=== PATIENT | male | born 1965 | race Caucasian/White ===

== ENCOUNTER → 2023-09-05 06:23 | Day surgery (SDC) | payer BC, SELFPAY | LOC: GI 06:23 | PROVIDERS: ATTENDING PHYSICIAN Internal Medicine Gastroenterology | DX: Z12.11 Encounter for screening for malignant neoplasm of colon (principal); Z86.010 Personal history of colon polyps; K64.8 Other hemorrhoids; K57.30 Diverticulosis of large intestine without perforation or abscess without bleeding; D12.5 Benign neoplasm of sigmoid colon; K63.5 Polyp of colon | CPT/HCPCS: 45385; 45380; 88305 ==

== ENCOUNTER → 2023-11-26 06:17 | Outpatient (REF) | payer BC, SELFPAY ==
[2023-11-26 07:16] LABS: % Basophils 1.2 % (0-2); % Eosinophils 3.3 % (0-6); % Immature Granulocytes 0.3 % (0-0.5); % Lymphocytes 26.6 % (20.5-51.1); % Monocytes 11.5 % (1.7-9.3); % Neutrophils 57.1 % (42.2-75.2); Absolute Basophils 0.1 10^3/uL (0-0.2); Absolute Eosinophils 0.2 10^3/uL (0-0.7); Absolute Lymphocytes 1.9 10^3/uL (1.2-3.4); Absolute Monocytes 0.8 10^3/uL (0.1-0.6); Absolute Neutrophils 4.1 10^3/uL (1.4-6.5); Hematocrit 46.7 % (39.0-52.0); Hemoglobin 15.7 g/dL (13.0-18.0); Mean Corp Hgb Conc. 33.6 g/dL (33.0-37.0); Mean Corpuscular Hgb 29.8 pg (27.0-31.0); Mean Corpuscular Volume 88.8 fL (80.0-94.0); Mean Platelet Volume 9.9 fL (7.4-10.4); Nucleated Red Blood Cells % 0 % (-); Platelet Count 278 10^3/uL (130-400); Red Blood Cell Count 5.26 10^6/uL (4.70-6.10); Red Cell Dist. Width 12.6 % (11.5-14.5); White Blood Cell Count 7.2 10^3/uL (4.8-10.8)
[2023-11-26 07:25] LABS: Urine Albumin Negative (Neg - Trace); Urine Bilirubin Negative (Negative); Urine Character Clear (Clear); Urine Color Yellow; Urine Glucose Negative (Negative); Urine Ketone Negative (Negative); Urine Leukocyte Negative (Negative); Urine Nitrite Negative (Negative); Urine Occult Blood Negative (Negative); Urine Urobilinogen 1+ (Neg - 1+)
[2023-11-26 07:33] LABS: ALT (SGPT) 23 U/L (0-50); AST (SGOT) 23 U/L (17-59); Albumin 4.3 g/dl (3.5-5.0); Alkaline Phosphatase 63 U/L (38-126); Blood Urea Nitrogen 13 mg/dl (9-20); Calcium 9.6 mg/dl (8.4-10.2); Carbon Dioxide 25 mmol/L (22-30); Chloride 105 mmol/L (98-107); Glucose 93 mg/dl (70-99); HDL Cholesterol 77 mg/dl; LDL Cholesterol, Calculated 114 mg/dl; Potassium 4.3 mmol/L (3.5-5.1); Sodium 136 mmol/L (135-145); Total Bilirubin 1.2 mg/dl (0.2-1.3); Total Cholesterol 204 mg/dl (50-199); Total Protein 7.3 g/dl (6.3-8.2); Triglyceride 69 mg/dl (10-149); Very Low Density Lipoprotein 13 mg/dl (0-30); eGFR > 60.00
[2023-11-26 08:03] LABS: PSA, Total - Screen 3.02 ng/ml (0.0-4.0); TSH Reflex To Free T4 3.37 uIU/ml (0.47-4.68)
[2023-11-26 08:50] LABS: Lithium 0.8 mmol/L (0.6-1.2)
== END ==
LOC: REG 06:17
PROVIDERS: ATTENDING PHYSICIAN Family Medicine
DX: Z00.01 Encounter for general adult medical examination with abnormal findings (principal); Q85.00 Neurofibromatosis, unspecified; F31.9 Bipolar disorder, unspecified
CPT/HCPCS: 36415; 80053; 80061; 80178; 81003; 84443; 85025; G0103

== ENCOUNTER → 2023-12-27 09:50 | Outpatient (REF) | payer BC, SELFPAY ==
[2023-12-27 12:44] LABS: PSA, Total - Screen 3.17 ng/ml (0.0-4.0)
== END ==
LOC: REG 09:50
PROVIDERS: ATTENDING PHYSICIAN Family Medicine
DX: R97.20 Elevated prostate specific antigen [PSA] (principal)
CPT/HCPCS: 36415; G0103

== ENCOUNTER → 2024-06-24 11:20 | Outpatient (REF) | payer BC, SELFPAY ==
[2024-06-24 13:09] LABS: PSA, Total - Screen 3.06 ng/ml (0.0-4.0)
== END ==
LOC: REG 11:20
PROVIDERS: ATTENDING PHYSICIAN Family Medicine
DX: R97.20 Elevated prostate specific antigen [PSA] (principal)
CPT/HCPCS: 36415; G0103

== ENCOUNTER 2025-01-14 10:23 | Emergency (ER) | payer BC, SELFPAY ==
[2025-01-14] VITALS (12 sets, daily range): BP systolic 109–133; BP diastolic 72–103; PULSE 77–87; BMI 28.0
--- NOTE | 2025-01-14 11:25 | ED.GENMED ---
History of Present Illness
General
Chief Complaint: Dizziness
Source: patient
Exam Limitations: none
Time Seen by Provider: 01/14/25 10:54
History of Present Illness
History of Present Illness:
59-year-old male with history of neurofibromatosis type I presents with newer onset of left-sided neck pain and stiffness with new numbness and tingling to both hands particular the small and ring fingers. This has been present and getting worse
over the past 2 to 3 days. He notes associated dizziness and unsteadiness with gait. He feels like he is leaning towards 1 side when he walks. He denies double vision or blurry vision. No loss of vision. No headache. No recent trauma.
Remotely he required an excision of a neurofibromatosis lesion from his cervical spine. He had MRIs of his brain and cervical spine as recently as 2021. He denies any new weakness to the arms. No associated chest pain. No fevers. No other bowel
or bladder dysfunction
Phy Exam
Physical Exam
Physical Exam:
General: Well-appearing male no acute respiratory distress
HEENT: Normocephalic atraumatic no nystagmus
Heart: Regular rate and rhythm lungs: Clear no wheeze
Neurologic exam: Alert and oriented no facial asymmetry [place]-Hallpike negative no nystagmus finger-nose intact no drift good strength to the upper and lower extremities however there is some subjective decrease sensation to the small and ring fingers
bilaterally
Skin is warm no rash
Extremities: No cyanosis or edema
Course
Orders/Labs/Results
Orders:
Orders
01/14/25 10:30
Electrocardiogram (*1) Urgent
Reason for Study: Chest Pain
EKG- Treatment ONCE
01/14/25 11:16
Complete Blood Count/With Diff Urgent
01/14/25 11:29
CT Head & Neck Angio W/wo IV Urgent
Comment:
Reason For Exam: dizziness, paresthesias, neck pain h/o neurofibrom
01/14/25 11:48
Orthostatic VS- Treatment ONCE
01/14/25 11:51
Comprehensive Metabolic Panel Urgent
[place] Urgent
Comment: ADD ON
01/14/25 12:45
MR Cervical Spine Without & W Routine
Comment:
Reason For Exam: severe pain
Recent pill cam endoscopy?: No
Lorazepam [Ativan] 1 mg PO ONCE ONE
01/14/25 13:08
Add On- LAB Routine
Tests Added?: lithium level
Abnormal Lab Results
01/14/25 01/14/25
11:16 11:51
Lymphocytes % 17.5 L %
(20.5-51.1)
Chloride 111 H mmol/L
(98-107)
[place] < 0.2 L mmol/L
(0.6-1.2)
01/14/25 11:16
01/14/25 11:51
Vital Signs
Initial and Last Documented VS:
Initial Vital Signs
Temp Pulse Resp BP Pulse Ox
97.7 F 96 20 133/85 98
01/14/25 10:27 01/14/25 10:27 01/14/25 10:27 01/14/25 10:27 01/14/25 10:27
Last Documented Vital Signs
Temp Pulse Resp BP Pulse Ox
97.7 F 83 24 120/72 97
01/14/25 10:27 01/14/25 18:00 01/14/25 18:00 01/14/25 18:00 01/14/25 18:00
MDM/Problems Addressed
Differential Diagnosis Includes:
Dizziness with paresthesias to both hands and gait instability. History of neurofibromatosis type I. He has new neck pain as well. Differential could include stroke versus worsening underlying condition versus radiculopathy
Discussed with emergency room attending as well as neurology. Neurology in the room to see the patient. Will start with CT of head and CT angio of head and neck
*Pulse Oximetry
SaO2: 99
Oxygen Mode of Delivery: Room air
Patient hypoxic: no
*Critical Care Note
Total Time (30-74mins, 75-104mins- exclusive of procedures): Not Applicable
Update Note
Update Note:
Patient examined by neurology. Neurology did order MRI of cervical spine after CT angio of head and neck were performed. MRI cervical spine shows stable findings of neurofibromatosis in the cervical spine without significant encroachment of the
spinal cord. There is degenerative changes noted in the cervical spine as well. Patient notes persistent paresthesias to the ring and small fingers of both hands. He expresses concern about the progressive nature of this. I discussed these
findings with neurosurgery who recommended a course of steroids and follow-up but no acute intervention needed otherwise. At this point based on neurology and neurosurgery recommendations can be discharged with follow-up.
ED Attending Note
-
Portions of this chart may have been created with voice recognition software.� Occasional wrong word or��sound alike� substitutions may have occurred due to the inherent limitations of voice recognition software.
Discharge Plan
Departure
Patient Disposition: Home (Routine Discharge)
Date of Disposition: 01/14/25
Time of Disposition: 18:11
Patient with high blood pressure during this ER visit?: No
Discharge Problem:
Paresthesia
Instructions: Vertigo (a type of dizziness)
Prescriptions:
New
pregabalin [Lyrica] 100 mg capsule
100 mg PO TID Qty: 30 0RF
prednisone 10 mg Tablet
See Rx Instructions .ROUTE .COMPLEX Qty: 30 0RF
Rx Instructions:
Take By Mouth:
40 mg daily x3 days, 30 mg daily x3 days,
20 mg daily x3 days, 10 mg daily x3 days.
Referrals:
Hector Paredes DO [Family Provider, Family Practice]
Activity Restrictions/Additional Instructions:
Use the Lyrica and prednisone as directed. Return here for worsening symptoms otherwise continue to follow-up with neurology and neurosurgery
Interventions
Interventions:
*Risk Screen - Suicide Last Done: 01/14/25 10:27
*General Assessment Last Done: 01/14/25 10:27
*Neglect/Abuse Screening Last Done: 01/14/25 10:27
*ED- Fall Risk Assessment Last Done: 01/14/25 11:01
*ED COVID-19 Vaccine History Last Done: 01/14/25 11:55
ED- Neurological Assessment Last Done: 01/14/25 11:01
ED Swallowing Screen Last Done: 01/14/25 10:54
Discharge Date and Time
Print Language: K[place]
[2025-01-14 11:31] LABS: % Basophils 1.2 % (0-2); % Eosinophils 1.7 % (0-6); % Immature Granulocytes 0.3 % (0-0.5); % Lymphocytes 17.5 % (20.5-51.1); % Monocytes 8.3 % (1.7-9.3); Absolute Basophils 0.1 10^3/uL (0-0.2); Absolute Eosinophils 0.1 10^3/uL (0-0.7); Absolute Lymphocytes 1.3 10^3/uL (1.2-3.4); Absolute Monocytes 0.6 10^3/uL (0.1-0.6); Absolute Neutrophils 5.4 10^3/uL (1.4-6.5); Hematocrit 43.5 % (39.0-52.0); Mean Corp Hgb Conc. 34.5 g/dL (33.0-37.0); Mean Corpuscular Hgb 29.8 pg (27.0-31.0); Mean Corpuscular Volume 86.5 fL (80.0-94.0); Mean Platelet Volume 9.6 fL (7.4-10.4); Nucleated Red Blood Cells % 0 % (-); Platelet Count 245 10^3/uL (130-400); Red Blood Cell Count 5.03 10^6/uL (4.70-6.10); Red Cell Dist. Width 12.5 % (11.5-14.5); White Blood Cell Count 7.6 10^3/uL (4.8-10.8)
--- NOTE | 2025-01-14 11:32 | CON.NEURO4 ---
Addendum entered and electronically signed by Bridger Dean MD 01/14/25 15:55:
Studies reviewed.
I have personally examined the patient. I reviewed and agree with the PILOT CAN ROUTER's Note.
My addenda:
Awake, alert, interactive. No acute distress.
Speech intact.
Follows 2-step requests w/o difficulty. No tremor.
Extra-ocular movements grossly intact.
Facial movements full and symmetric. Hearing intact to normal conversational volume.
Normal UE movements bilaterally.
Neck: full ROM.
Chest: no dyspnea
Heart: no JVD
Ext: (-) Clubbing, (-) Cyanosis, (-) Edema
IMPRESSIONS/RECOMMENDATIONS:
Abrupt onset of worsening neck discomfort as well as sense of dizziness
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
Check MRI of cervical spine to determine if structural abnormality producing symptoms
Check CTA head and neck to determine if there is a structural abnormality in the arterial flow producing symptoms
Provide pregabalin 100 mg up to 3 times a day as needed for hand sensation changes
Patient may benefit in the future from occupational and physical therapy
D/W patient / family / nursing
Will continue to follow pending results. Patient should coordinate care in the future with [facility] as outpatient.
Original Note:
Documented by User: Gaviota Vasquez NP 01/14/25 13:49
Consultation - Neurology 4
-
CONSULTING PHYSICIAN: Bridger Dean MD
REFERRING PHYSICIAN: ER/Leo Figueroa PA-C
DICTATED BY: ZANE Hernández
DATE/TIME OF REQUEST: 01/14/25
DATE/TIME OF CONSULTATION: 01/14/25
Reason for Consultation: Neck pain, dizziness, hand numbness
History of Present Illness:
This is a 59-year-old right-handed male with a PMH of neurofibromatosis type 1 who has presented to the hospital with report of light-headedness, left neck pain, gait dysfunction, and bilateral hand 4th and 5th finger numbness. He has previously
been evaluated by our Neurology service Dr. Thomas as an outpatient for bilateral lower extremity numbness.
From outpatient encounter with Dr. Thomas on 07/03/2022:
'�56 year-old male with a history of neurofibromatosis with fibroma resection x 2 in the past. His main issues are neck stiffness with limited range of motion particularly with head rotation to the right as well as numbness in his bilateral lower
extremities, her right worse than left as well as low back pain, left more so than right, and some numbness in his groin. It sounds as if he was diagnosed with neurofibromatosis in his 20s. He is unclear on what type he has. He says his sister and 1
of his shoulder and also has this as does his father. He said that he was initially misdiagnosed with multiple sclerosis and later a tumor was found near the base of the skull on the myelogram which was removed. He says that he had fibromas removed
from his left thigh as well. These symptoms of numbness are new for him and he is concerned about new fibromas. His initial surgery was done in 1981 and a second surgery was done about 20 years ago, both by [place] [facility]. He believes that he
also had an EMG/nerve conduction study done years ago but does not know the result. His most recent imaging was an MRI of the cervical spine which she believes was done about 4 years ago. 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.
�������Evaluation with Mindi Garcia, 04/17/2022:
�������MRI cervical spine completed on 03/22/2022 showed postsurgical changes in the upper cervical spine including enhancing scar within the soft tissues posteriorly at C1-C2 level. No evidence for residual mass within the spinal canal at this level.
There is focal atrophy and increased T2 and STIR signal within the cervical spinal cord at the C1-C2 level, which is likely myelomalacia from previous injury. Numerous masses extended along the nerve roots throughout the cervical spine and
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 The presence of these neuromas would suggest the diagnosis of neurofibromatosis type I.
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 Findings remain most compatible with neurofibromatosis type I.
Small multilevel disc bulges/protrusions in the thoracic spine do not result in significant sequela. Diffuse heterogeneous low to intermediate T1 signal intensity in the bone marrow may be on the basis of a red marrow reconversion.
�������MRI lumbar spine completed on 03/22/2022 showed multiple enhancing masses extensive along the nerve roots throughout the lumbar spine, extending from T12-L1 to the sacrum, appearance compatible with plexiform neurofibromas. Correlating with
findings in cervical spine, findings are considered highly suggestive neurofibromatosis type I. Of note there does not appear to be significant neurofibroma involvement visualized lower thoracic spine, although the neurofibromas in this region could
just be significantly smaller than in the lumbar spine. The neurofibromas occupy the neural foramen and extend slightly into the region of the lateral recess in the lumbar spine. There is no significant overall central canal stenosis in the lumbar
spine based on the basis of the neurofibromas. In the sacrum, the durable fibromas occupy sacral neural foraminal and resulting enlargement of the foraminal and pressure erosion. Additionally, there appears to be extension of dura fibroma into the
spinal canal at the S3 level. There are symptoms referable to the sacral level, it could be useful to obtain a dedicated MRI of the sacrum, to better assess the degree of involvement of the sacral spinal canal and sacral neural foramina.
�������Patient reports he only has mild weakness occasionally when standing or sitting in a specific position. Continues with intermittent numbness. He has not had any surgery for neurofibromas in many years.
�������07/03/22: He continues to have intermittent numbness in his BLE. If he stands up for a prolonged period of time his LLE goes numb. He also has numbness in his RLE if he drives long distances. His MRI brain w/wo contrast on 05/11/22 showed no
significant abnormalities. He has an appt with Dr. Rockwell, a nsx who specializes in spine at [facility], in July.'
Patient reports that three days ago on 01/11/25 he developed a dizzy sensation which he describes as feeling off-balance on his feet. This has persisted since then but resolves at rest. Then yesterday (01/13/25), he reports getting up off of the
couch after a nap and developing soreness on the left side of his neck followed by tingling in bilateral hands 4th and 5th fingers. His symptoms did not resolve, prompting him to come to the ER for evaluation. He denies any diplopia, vision loss,
speech/swallow difficulty, and weakness. He reports having a mild headache several days ago that has resolved. He also notes that he has been dropping things from his hands every couple of days starting one week ago. He does note that his family has
been complaining about him not hearing them. He went to his PCP this week and was told there was wax buildup in his ears but they didn't lavage it due to his report of dizziness at the time. He reports having vertigo with a spinning sensation 7
years ago that did not feel like his current symptoms. His last MRI imaging for neurofibromatosis was of his cervical, thoracic, and lumbar spine in 2022 and was stable. He was most recently evaluated by Neurosurgery Dr. Marshall at [facility] at that
time.
Past Medical History: Neurofibromatosis, bipolar disorder, colon polyps
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
Family History: Sister- neurofibromatosis
Social History: Denies tobacco, alcohol, and illicit drug use.
Allergies: No known allergies.
Home Medications: See below.
Review of Symptoms:
Patient denies any fever, headache, chest pain, shortness of breath, GI or symptoms.
�Per the HPI.�All systems are reviewed negative except above.
Physical Exam:
The patient is afebrile, abdomen is nondistended, breathing is unlabored, skin is warm and dry, no edema.
NIH Stroke Scale:
I performed the NIH stroke scale on the patient on 01/14/25 at 1130. The patient scored 2 points on the NIH stroke scale assessment, which were assigned as follows:
Neurologic Examination:
The patient is awake, alert and oriented x 3, forgetful. He is able to follow commands and answer questions appropriately. There is no aphasia or dysarthria. On cranial nerve assessment, pupils are 3 mm bilateral, round and reactive to light and
accommodation. Visual richter are full. Extraocular movements are intact. No nystagmus. Facial sensations are intact and bilaterally symmetrical, there is no facial asymmetry. Hearing is grossly reduced bilaterally to normal conversation volume.
Tongue, palate and uvula are midline. There are enlarged fungiform papillae at the base of his tongue/palate. Sternocleidomastoid strengths are full bilaterally. Motor strengths are 5/5 bilateral upper and lower extremities on medical research
Hermann scale. There is mild foot drop in the left foot, 5-. There is no drift or involuntary movement noted. Deep tendon reflexes are 2+ bilateral upper and lower extremities and Babinski is absent bilaterally. There was no extinction noted on
double simultaneous stimulation. Coordination is mildly ataxic in the LUE with finger to nose. Mild ataxia in BLE with heel to chávez.
Lab Results: See below.
Neuro Imaging: None.
Differentials for the patient's presentation include:
1. Dizziness, neck discomfort, and bilateral hand numbness. Uncertain etiology; possible progression of neurofibromatosis, rule out vascular abnormality contributing to symptoms.
2. Acute hearing change concerning for lithium toxicity.
Patient has the following risk factors for their symptoms: Neurofibromatosis, lithium usage
Recommendations:
-CTA head/neck pending.
-MRI cervical spine w/ and w/o contrast pending. Lorazepam on-call for MRI due to claustrophobia.
-[place] level pending.
-Physical therapy evaluation.
Discussed patient care with: Dr. Dean, the patient
Vital Signs and Labs
-
Vital Signs and Labs:
Vital Signs
Temp Pulse Resp BP Pulse Ox
97.7 F 96 20 133/85 99
01/14/25 10:27 01/14/25 10:27 01/14/25 10:27 01/14/25 10:27 01/14/25 11:29
Lab Results
01/14/25 11:16
Sodium Cancelled 01/14/25 11:16
Potassium Cancelled 01/14/25 11:16
BUN Cancelled 01/14/25 11:16
Glucose Cancelled 01/14/25 11:16
Calcium Cancelled 01/14/25 11:16
NIH Stroke Score
Subsequent NIH Scale
Date of Subsequent NIH Scale: 01/14/25
Time of Subsequent NIH Scale: 11:30
NIH Stroke Score
Level of Consciousness: 0 - Alert
LOC Questions: 0-Answers both correctly
LOC Commands: 0-Performs both correctly
Best Horizontal Gaze: 0-Normal
Visual Richter: 0=Normal, no visual loss
Facial Palsy: 0=Normal, symmetrical
Motor - Right Arm: 0=No drift 10 seconds
Motor - Left Arm: 0=No drift 10 seconds
Motor - Right Le-No drift 5 seconds
Motor - Left Le-No drift 5 seconds
Limb Ataxia: 2-Present in two limbs
Sensation: 0-Normal
Best Language: 0-No aphasia
Dysarthria: 0-Normal
Extinction and Inattention: 0-No abnormality
NIH Total Score:: 2
Modified [place] (mRS) Score
Modified [place] Scale (mRS): No significant disability. Able to carry out usual activities.
Score: 1

Documented by User: Bridger Dean MD 01/14/25 15:47
NIH Stroke Score
NIH Stroke Score
NIH Total Score:: 2
Modified [place] (mRS) Score
Score: 1
[2025-01-14 12:33] LABS: ALT (SGPT) 16 U/L (0-50); AST (SGOT) 18 U/L (17-59); Alkaline Phosphatase 52 U/L (38-126); Blood Urea Nitrogen 12 mg/dl (9-20); Carbon Dioxide 23 mmol/L (22-30); Chloride 111 mmol/L (98-107); Estimated Creatinine Clearance 96 ml/min; Glucose 93 mg/dl (70-99); Sodium 141 mmol/L (135-145); Total Bilirubin 0.7 mg/dl (0.2-1.3); Total Protein 6.8 g/dl (6.3-8.2); eGFR > 60.00
[2025-01-14 13:19] LABS: Lithium < 0.2 mmol/L (0.6-1.2)
[2025-01-14] MEDS: ATIVAN 1 MG PO (13:24)
== END 2025-01-14 18:26 | disposition home or self-care (01) ==
LOC: EMR 10:23
PROVIDERS: Physician Assistant; EMERGENCY PHYSICIAN Emergency Medicine; FAMILY PHYSICIAN Family Medicine
DX: R20.2 Paresthesia of skin (principal); R55 Syncope and collapse; Q85.01 Neurofibromatosis, type 1
CPT/HCPCS: 99284; 70496; 70498; 72156; 80053; 80178; 85025; 93005; A9575; Q9967

== ENCOUNTER 2025-01-16 06:43 | Inpatient (IN) | payer BC, SELFPAY ==
[2025-01-16] VITALS (12 sets, daily range): BP systolic 109–136; BP diastolic 71–95; PULSE 75–96; BMI 28.7; BMI 27.6
[2025-01-16 03:31] LABS: % Basophils 0.3 % (0-2); % Eosinophils 0.3 % (0-6); % Immature Granulocytes 0.4 % (0-0.5); % Lymphocytes 11.8 % (20.5-51.1); % Monocytes 8.7 % (1.7-9.3); % Neutrophils 78.5 % (42.2-75.2); Absolute Lymphocytes 1.2 10^3/uL (1.2-3.4); Absolute Monocytes 0.9 10^3/uL (0.1-0.6); Absolute Neutrophils 7.6 10^3/uL (1.4-6.5); Hematocrit 42.8 % (39.0-52.0); Hemoglobin 14.7 g/dL (13.0-18.0); Mean Corp Hgb Conc. 34.3 g/dL (33.0-37.0); Mean Corpuscular Volume 87.3 fL (80.0-94.0); Mean Platelet Volume 9.9 fL (7.4-10.4); Nucleated Red Blood Cells % 0 % (-); Platelet Count 283 10^3/uL (130-400); Red Cell Dist. Width 12.3 % (11.5-14.5); White Blood Cell Count 9.7 10^3/uL (4.8-10.8)
[2025-01-16 03:50] LABS: ALT (SGPT) 24 U/L (0-50); AST (SGOT) 22 U/L (17-59); Albumin 4.3 g/dl (3.5-5.0); Alkaline Phosphatase 64 U/L (38-126); Blood Urea Nitrogen 17 mg/dl (9-20); Calcium 9.3 mg/dl (8.4-10.2); Carbon Dioxide 22 mmol/L (22-30); Chloride 109 mmol/L (98-107); Estimated Creatinine Clearance 96 ml/min; Glucose 105 mg/dl (70-99); Potassium 4.3 mmol/L (3.5-5.1); Sodium 140 mmol/L (135-145); Total Bilirubin 0.4 mg/dl (0.2-1.3); Total Protein 7.1 g/dl (6.3-8.2); eGFR > 60.00
[2025-01-16 04:14] LABS: Alcohol None Detected
--- NOTE | 2025-01-16 05:20 | ED.GENMED ---
History of Present Illness
General
Chief Complaint: Fall
Source: patient, family, previous radiology exam and previous hospital records
Exam Limitations: none
Time Seen by Provider: 01/16/25 04:02
Nursing documentation reviewed up to this point in time: agreed with
History of Present Illness
History of Present Illness:
This is a 59-year-old gentleman with history of neurofibromatosis type I. Remote history of neurofibroma excision from cervical spine. Initially presented to this ED January 14 with complaints of several day history of neck pain, paresthesia
bilateral hands and intermittent dizziness.
Evaluated by neurology in the ED. CT/CTA of the head and neck showed no acute findings and MRI of the cervical spine showed multiple neurofibromas but unchanged from previous imaging.
Further discussion with neurosurgery along with neurology. He was started on Lyrica as well as prednisone and was prescribed meclizine by PCP.
He is chronically maintained on lithium. Was noted to have significantly low lithium level of less than 0.2. He states his dose has not changed and he has not missed doses. [place] dose titrated up yesterday as per specialist.
He states neck pain, bilateral hand paresthesias have resolved but he presents with progressive ataxia over the past 24 hours and suffered a fall tonight when he attempted to get up from the couch. He denies head injury nor loss of consciousness.
He has had intermittent incontinence, some dribbling of urine and unable to make it to the bathroom.
He is also been somewhat confused which is unlike him.
Since arrival to the ED he is also noticed some double vision.
Past History
Past History
ED Past Medical History: Psychiatric (Bipolar disorder) and Other (Neurofibromatosis)
ED Past Surgical History: Other (Neurofibroma removal from cervical spine)
Social History
Tobacco: Non-smoker
Alcohol: None
Drug: None
Personal:
Living: with family
Employment: Employed
Family History
Family History: Other (Noncontributory)
Phy Exam
Physical Exam
Physical Exam:
GENERAL: 59-year-old gentleman appears his stated age, awake and alert, mildly anxious, easily communicative. Oriented x 3. Multiple family members accompanying.
EYE: pupils equal and reactive. Extraocular muscles intact. Anicteric
NECK: Supple, nontender, no meningismus, no significant adenopathy.
ENT: posterior pharynx is clear, oral mucosa is moist. No rhinorrhea.
CARDIAC: Regular rate and rhythm. no murmur.
LUNGS: Clear breath sounds bilaterally, no acute respiratory distress, no wheezes/rales/rhonchi
ABDOMEN: Soft, nondistended, without focal tenderness, no r/g, no cvat. normoactive BS.
NEUROLOGICAL: Alert and oriented x3, no focal neuro deficits. Mildly antalgic gait. Speech is clear.
SKIN: Warm and dry, normal color, skin intact. No rash.
MUSCULOSKELETAL: No C/C/E. peripheral pulses are full and equal b/l. No palpable tenderness.
PSYCH: Mildly anxious. Intermittently briefly forgetful as to recent events but able to quickly correct.
Course
Orders/Labs/Results
Orders:
Orders
01/16/25 03:11
Alcohol Urgent
Complete Blood Count/With Diff Urgent
Comprehensive Metabolic Panel Urgent
01/16/25 03:39
CT Head W/o Iv Contrast Urgent
Comment:
Reason For Exam: slurring words / nuero changes
01/16/25 03:47
Add On- LAB Urgent
Tests Added?: Alcohol level
01/16/25 06:00
Flush (0.9% Sodium Chloride) [Flush (Nss)] See Dose Instructions IV PER PROTOCOL
Abnormal Lab Results
01/16/25
03:11
Absolute Neuts (auto) 7.6 H 10^3/uL
(1.4-6.5)
Absolute Monos (auto) 0.9 H 10^3/uL
(0.1-0.6)
Neutrophils % 78.5 H %
(42.2-75.2)
Lymphocytes % 11.8 L %
(20.5-51.1)
Chloride 109 H mmol/L
(98-107)
Glucose 105 H mg/dl
(70-99)
01/16/25 03:11
01/16/25 03:11
Vital Signs
Initial and Last Documented VS:
Initial Vital Signs
BP
136/71
01/16/25 02:44
Last Documented Vital Signs
Temp Pulse Resp BP Pulse Ox
98.3 F 84 17 109/95 97
01/16/25 02:46 01/16/25 05:45 01/16/25 05:45 01/16/25 05:00 01/16/25 05:24
MDM/Problems Addressed
Differential Diagnosis Includes:
Concern for CVA, concern for progression of neurofibromas, concern for adverse medication reaction related to Lyrica, prednisone.
Will check CT of the head, repeat labs.
Chronic conditions affecting care: Neurological disorder and Psychiatric illness
Acute Exacerbation and/or Progression of Chronic Illness: Neurological disorder
*Pulse Oximetry
SaO2: 97
Oxygen Mode of Delivery: Room air
Patient hypoxic: no
*Assisted Living Administrator Interpretation
Rate: normal
Interpretation: normal
Rhythm: sinus
*Critical Care Note
Total Time (30-74mins, 75-104mins- exclusive of procedures): Not Applicable
Update Note
Update Note:
CT of the head shows no acute findings, similar and unchanged from previous.
Due to significant ataxia, ambulatory dysfunction with fall, patient will require acute hospitalization for further neurologic evaluation and stabilization.
ED Attending Note
-
Portions of this chart may have been created with voice recognition software.� Occasional wrong word or��sound alike� substitutions may have occurred due to the inherent limitations of voice recognition software.
Discharge Plan
Departure
Patient Disposition: Admit
Date of Disposition: 01/16/25
Time of Disposition: 05:20
Admit to: Med/Surg
Admit to doctor: Shan
Presentation/result/management discussed w/ accepting MD/DO: Hospitalist
Condition: Fair
Discharge Problem:
Acute ataxia
Prescriptions:
No Action
pregabalin [Lyrica] 100 mg capsule
100 mg PO TID Qty: 30 0RF
prednisone 10 mg Tablet
See Rx Instructions .ROUTE .COMPLEX Qty: 30 0RF
Rx Instructions:
Take By Mouth:
40 mg daily x3 days, 30 mg daily x3 days,
20 mg daily x3 days, 10 mg daily x3 days.
lithium carbonate 300 mg Tablet
600 mg PO BID
Referrals:
Hector Paredes DO [Family Provider, Family Practice]
Interventions
Interventions:
*Risk Screen - Suicide Last Done: 01/16/25 02:46
*General Assessment Last Done: 01/16/25 02:46
*Neglect/Abuse Screening Last Done: 01/16/25 02:46
*ED- Fall Risk Assessment Last Done: 01/16/25 02:57
*ED COVID-19 Vaccine History Last Done: 01/16/25 02:57
ED-Musculoskeletal Assessment Last Done: 01/16/25 02:57
ED- Neurological Assessment Last Done: 01/16/25 02:57
ED-Skin Assessment Last Done: 01/16/25 02:57
Discharge Date and Time
Print Language: SWEDISH
--- NOTE | 2025-01-16 06:33 | HPS.HSE ---
Family Physician
-
Family Physician: Hector Paredes
Chief Complaint
-
Ataxia, Confusion
History of Present Illness
Patient is a 59y M with PMH significant for neurofibromatosis and bipolar disorder who presents to ED complaining of ataxia, double-vision and confusion. History obtained from patient and his family at the bedside. Patient states that he
initially noted some unsteady gait and generally feeling off on Saturday of this week. He reports feeling lightheaded / dizzy and with intermittent double vision. He developed R sided neck discomfort and pain in the fingers / toes prompting an ED
evaluation here on 01/14. Imaging was done at that time including MR C-spine which showed NF changes but no acute abnormality. Note of area of myelomalacia at C1-2 which is site of prior neurofibroma excision (many years ago).
Patient was seen by Neurology at that time and case reviewed with Neurosurgery. He was prescribed Lyrica 100mg TID and a prednisone taper and discharged to home.
Since that time, patient notes improvement in his pain symptoms (neck / digits). However, he has continued to have unsteady gait, ataxia and double-vision.
In addition, family notes that he has been intermittently confused since that ED visit with confusion regarding meds, events and even some visual hallucinations.
This evening, patient stood from his chair and his legs 'gave out' causing him to fall. He denies any syncope, LOC, head injury, etc.
He had difficulty getting up unassisted. He was incontinent of a small amount of urine during the fall (but notes that he re-gained control and was able to finish voiding in the bathroom afetr being helped up).
He presented to the ED for further evaluation.
Note that his lithium level during his 01/14 ED visit was < 0.2. He was advised by his PCP just this afternoon / evening to increase his dose from 900mg daily to 1200mg daily.
Medical History
Past Medical History
Past Medical History: Reports Other
Additional Past Medical History:
Neurofibromatosis Type I
Bipolar Disorder
Past Surgical History: Reports Other
Additional Past Surgical History:
Cervical Laminectomy / Neurofibroma Excision (1981)
Left Thigh Neurofibroma Excision (1999)
Vasectomy
Social History
Tobacco: Former Smoker (Quit smoking in 1998. < 10 pack years total use.)
Alcohol: Occasional (Rare EtOH use)
Drug: None
Family History
Family History: Other (Neurofibromatosis in multiple family members.)
Allergies / Home Medications
Allergies reflects when Allergies were last updated in [employer].
Home Medications with original date entered in [employer]
Allergy/Medication List:
Allergies
Allergy/AdvReac Type Severity Reaction Status Date / Time
No Known Allergies Allergy Verified 01/16/25 02:45
Home Medications
prednisone 10 mg tablet See Rx Instructions .Route .COMPLEX #30 tabs 01/14/25
pregabalin 100 mg capsule (Lyrica) 100 mg PO TID #30 caps 01/14/25
lithium carbonate 300 mg tablet 600 mg PO BID 01/16/25
Review of Systems
-
History Source: Patient and Family
A 12 point ROS was completed and negative except as noted: Yes
Constitutional: Reports Fatigue; Denies Fever or Chills
EENT: Denies Sore Throat
Respiratory: Denies Cough or Trouble Breathing
Cardiac: Denies Chest Pain, Palpitations or Syncope
Abdomen/GI: Denies Abdominal Pain, Nausea, Vomiting or Diarrhea
: Reports Incontinence; Denies Dysuria or Frequency
Musculoskeletal: Denies Joint Pain or Edema
Neurological: Reports Dizzy, Weakness and Other (Unsteady gait. Double vision.); Denies Headache or Numbness
Psych: Denies Depression or Anxiety
Physical Exam
Vital Signs
Vital Signs
Temp Pulse Resp BP Pulse Ox
98.3 F 84 17 109/95 97
01/16/25 02:46 01/16/25 05:45 01/16/25 05:45 01/16/25 05:00 01/16/25 05:24
Physical Exam
General: Other (59y M in no acute distress.)
HEENT: Moist mucous membranes and PERRLA
Respiratory: Clear; No Wheezes, Rales or Rhonchi
Cardiac: S1/S2 and Regular Rhythm; No Murmur
GI: Soft, Non Tender, Non Distended and Normal Bowel Sounds
Musculoskeletal: No Clubbing, No Cyanosis and No Edema
Neuro: AO x 3 and Other (Very mild R sided weakness. Hybxpr-ml-aqae notably less fluid on the R - but not grossly ataxic.)
Laboratory Results
-
01/16/25 03:11
01/16/25 03:11
Laboratory Results
Total Bilirubin 0.4 mg/dl (0.2-1.3) 01/16/25 03:11
AST 22 U/L (17-59) 01/16/25 03:11
ALT 24 U/L (0-50) 01/16/25 03:11
Alkaline Phosphatase 64 U/L (38-126) 01/16/25 03:11
Impression/Plan
-
A/P: Patient is a 59y M with PMH significant for neurofibromatosis and bipolar disorder who presents to ED complaining of dizziness, ataxia, double vision and confusion.
Acute TME / Confusion / Hallucinations
- Admit for further evaluation and treatment.
- Given timing of these symptoms - suspect they are related to new medications (Lyrica / prednisone).
- Will hold both for now.
- Follow for any new / worsening symptoms - or for return of neuropathic pain syndrome.
- May also represent progression of underlying process - see below for further evaluation.
Ataxia
Diplopia
Neurofibromatosis - I
- Has been having progressive symptoms of ataxia, dizziness, diplopia, etc for at least weeks.
- States that people have noted him 'limping' at work - even before he himself recognized this.
- Imaging done during 01/14 ED visit without clear acute abnormality - but extensive / unchanged NF activity noted.
- ? related to area of myelomalacia in proximal spinal cord at site of remote NF excision?
- PT / OT evaluations.
- Will check MRI brain as well - especially given complaint of diplopia.
- Neurology evaluation for additional recommendations / other imaging studies / etc.
- Follow for any new / worsening symptoms.
Bipolar Disorder
Subtherapeutic [place] Level
- Doubt that low lithium level is responsible for any of his current symptoms.
- Continue current dose (increased to 600mg BID in the last 24 hours).
- Repeat level 5-7 days after dose change and adjust further if needed.
DVT Prophylaxis: SCDs
Code Status: Full
--- NOTE | 2025-01-16 08:15 | PTCARENOTE ---
Received patient from ED. Patient here with ataxia, ambulatory dysfunction and some disorientation prior to admission. Unsteady on feet, assist of one to ambulate. Oriented to unit/calling for assistance.
--- NOTE | 2025-01-16 08:23 | CON.NEURO ---
Neuro Assessment/Plan
Assessment
Numbness and tingling improved. Change in mental status most likely due to toxicity and adverse reaction with Pregabalin
No evidence of structural problem producing symptoms, although presence of C1-2 myelopathy by MRI of cervical spine
Plan
Reduce Pregabalin dosing to 50 mg three times a day from 100 mg TID
Physical therapy now and as outpatient
We will follow MRI of brain results
Contact [facility] Neurofibromatosis clinic.
Consultation
Order
Date of Consultation: 01/16/25
Requesting Provider: Hospitalists
Reason for Consult: Change in mental status
Subjective/Objective
Subjective Data
Date of Service: January 16, 2025
Adapted from our consult 2 days ago:
'59-year-old right-handed male with a PMH of neurofibromatosis type 1 who has presented to the hospital with report of light-headedness, left neck pain, gait dysfunction, and bilateral hand 4th and 5th finger numbness. He has previously been
evaluated by our Neurology service Dr. Thomas as an outpatient for bilateral lower extremity numbness.
From outpatient encounter with Dr. Thomas on 07/03/2022:
' 56 year-old male with a history of neurofibromatosis with fibroma resection x 2 in the past. His main issues are neck stiffness with limited range of motion particularly with head rotation to the right as well as numbness in his bilateral lower
extremities, her right worse than left as well as low back pain, left more so than right, and some numbness in his groin. It sounds as if he was diagnosed with neurofibromatosis in his 20s. He is unclear on what type he has. He says his sister and 1
of his shoulder and also has this as does his father. He said that he was initially misdiagnosed with multiple sclerosis and later a tumor was found near the base of the skull on the myelogram which was removed. He says that he had fibromas removed
from his left thigh as well. These symptoms of numbness are new for him and he is concerned about new fibromas. His initial surgery was done in 1981 and a second surgery was done about 20 years ago, both by [place] [facility]. He believes that he
also had an EMG/nerve conduction study done years ago but does not know the result. His most recent imaging was an MRI of the cervical spine which she believes was done about 4 years ago. 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
Evaluation with Mindi Garcia, 04/17/2022:
MRI cervical spine completed on 03/22/2022 showed postsurgical changes in the upper cervical spine including enhancing scar within the soft tissues posteriorly at C1-C2 level. No evidence for residual mass within the spinal canal at this level.
There is focal atrophy and increased T2 and STIR signal within the cervical spinal cord at the C1-C2 level, which is likely myelomalacia from previous injury. Numerous masses extended along the nerve roots throughout the cervical spine and
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 The presence of these neuromas would suggest the diagnosis of neurofibromatosis type I.
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 Findings remain most compatible with neurofibromatosis type I.
Small multilevel disc bulges/protrusions in the thoracic spine do not result in significant sequela. Diffuse heterogeneous low to intermediate T1 signal intensity in the bone marrow may be on the basis of a red marrow reconversion.
MRI lumbar spine completed on 03/22/2022 showed multiple enhancing masses extensive along the nerve roots throughout the lumbar spine, extending from T12-L1 to the sacrum, appearance compatible with plexiform neurofibromas. Correlating with
findings in cervical spine, findings are considered highly suggestive neurofibromatosis type I. Of note there does not appear to be significant neurofibroma involvement visualized lower thoracic spine, although the neurofibromas in this region could
just be significantly smaller than in the lumbar spine. The neurofibromas occupy the neural foramen and extend slightly into the region of the lateral recess in the lumbar spine. There is no significant overall central canal stenosis in the lumbar
spine based on the basis of the neurofibromas. In the sacrum, the durable fibromas occupy sacral neural foraminal and resulting enlargement of the foraminal and pressure erosion. Additionally, there appears to be extension of dura fibroma into the
spinal canal at the S3 level. There are symptoms referable to the sacral level, it could be useful to obtain a dedicated MRI of the sacrum, to better assess the degree of involvement of the sacral spinal canal and sacral neural foramina.
Patient reports he only has mild weakness occasionally when standing or sitting in a specific position. Continues with intermittent numbness. He has not had any surgery for neurofibromas in many years.
07/03/22: He continues to have intermittent numbness in his BLE. If he stands up for a prolonged period of time his LLE goes numb. He also has numbness in his RLE if he drives long distances. His MRI brain w/wo contrast on 05/11/22 showed no
significant abnormalities. He has an appt with Dr. Rockwell, a nsx who specializes in spine at [place], in July.'
Patient reports that three days ago on 01/11/25 he developed a dizzy sensation which he describes as feeling off-balance on his feet. This has persisted since then but resolves at rest. Then yesterday (01/13/25), he reports getting up off of the
couch after a nap and developing soreness on the left side of his neck followed by tingling in bilateral hands 4th and 5th fingers. His symptoms did not resolve, prompting him to come to the ER for evaluation. He denies any diplopia, vision loss,
speech/swallow difficulty, and weakness. He reports having a mild headache several days ago that has resolved. He also notes that he has been dropping things from his hands every couple of days starting one week ago. He does note that his family has
been complaining about him not hearing them. He went to his PCP this week and was told there was wax buildup in his ears but they didn't lavage it due to his report of dizziness at the time. He reports having vertigo with a spinning sensation 7
years ago that did not feel like his current symptoms. His last MRI imaging for neurofibromatosis was of his cervical, thoracic, and lumbar spine in 2022 and was stable. He was most recently evaluated by Neurosurgery Dr. Marshall at [facility] at that
time.'
MRI of cervical spine performed on return failed to demonstrate significant acute changes.
Patient returned to this hospital's emergency department due to self stated confusion and worsening gait. Returned to normal since this AM.
Skin sensation changes remain although improved with Pregabalin. Mental status worsened after initiation of Pregabalin, markedly improved currently.
Objective Data
Vital Signs
Temp Pulse Resp BP Pulse Ox
36.8 C 75 18 126/81 96
01/16/25 08:09 01/16/25 08:09 01/16/25 08:09 01/16/25 08:09 01/16/25 08:09
Lab Results
01/16/25 03:11
01/16/25 03:11
Sodium 140 mmol/L (135-145) 01/16/25 03:11
Potassium 4.3 mmol/L (3.5-5.1) 01/16/25 03:11
BUN 17 mg/dl (9-20) 01/16/25 03:11
Glucose 105 mg/dl (70-99) H 01/16/25 03:11
Calcium 9.3 mg/dl (8.4-10.2) 01/16/25 03:11
Patient Allergies
No Known Allergies Allergy (Verified 01/16/25 02:45)
Review of Systems
-
History Source: Patient
All other systems: Reviewed and negative
EENT: Negative Swallowing Difficulty
Abdomen/GI: Negative Incontinence of Stool
Genitourinary: Incontinence
Musculoskeletal: Negative Neck Pain
Neuro: Dizzy; Negative Headache
Physical Exam
-
General: No Apparent Distress and Appears Stated Age
Eyes: OU Absent Papilledema, Able to visualize OU, Round OU, [employer] Conjunctivae and No Ptosis
HEENT: Anicteric and Moist Mucous Membranes
Neck: Full Range of Motion
Respiratory: No Dyspnea
Cardiac: No JVD
GI: Non-distended
Skin: Unremarkable
Extremities: No Clubbing, No Cyanosis and No Edema
Psych: Negative Intact Judgement/Insight
Extended Neurological Exam
Mood & Affect: Mood Unremarkable and Affect Unremarkable
Attention Span & Concentration: Awake, Alert, Interactive and No Difficulty with 2 Step Request
Memory: Unremarkable
Tremor: Hand Tremor Absent and Head Tremor Absent
Speech: Quality Unremarkable and Quantity Unremarkable
Cranial Nerve II: Left Eye: Pupillary Reactivity Unremarkable, Pupillary Size Unremarkable and Visual Richter Intact
Cranial Nerve II: Right Eye: Pupillary Reactivity Unremarkable, Pupillary Size Unremarkable and Visual Richter Intact
Cranial Nerves III, IV, : Extraocular Movement: Extraocular Movement Full in all Directions and No Ptosis
Cranial Nerve VII: Facial Symmetry: Normal Facial Symmetry
Cranial Nerve VIII: Hearing: Unremarkable Hearing to Normal Conversational Volume
Cranial Nerves IX, X: Palate Movement: Palate Elevation Symmetric
Cranial Nerve XI: Shoulder Shrug: Unremarkable
Cranial Nerve XII: Tongue Protusion: Midline
Muscle Strength, Overall: Full Throughout
Muscle Bulk & Tone: Bulk Unremarkable and Tone Unremarkable
Pronator Drift: No Drift in Upper Extremities
Deep Tendon Reflexes: Unremarkable Throughout
Touch Sensation: Unremarkable
Coordination: [id number] Testing Unremarkable
Babinski Sign: Absent Bilaterally
Gait & Station: Romberg Test Positive
Data Reviewed
-
MRI Head: Pending
MRI Cervical Spine: Report Reviewed and Image Reviewed
Labs: Report Reviewed
Reviewed with: Physician, Patient and Family
Old Records: Summarized
Medications
-
Active Medications
Generic Name Dose Route Start Last Admin
Trade Name Freq PRN Reason Stop Dose Admin
Acetaminophen 650 mg 01/16/25 08:01
Acetaminophen 325 Mg Tablet PO 02/13/25 08:00
Q4HPRN PRN
Mild Pain / Temp > 101
Luis Lopez Carbonate 600 mg 01/16/25 08:30
Luis Lopez Carbonate 300 Mg Regular Release Capsule PO 02/13/25 08:29
BID PEE
Ondansetron HCl 4 mg 01/16/25 08:01
Ondansetron 4 Mg/2 Ml Vial IV 02/13/25 08:00
Q6HPRN PRN
nausea and vomiting
Sodium Chloride 0 flush 01/16/25 06:00
Sodium Chloride 0.9% (Flush) Syringe IV 02/13/25 05:59
PER PROTOCOL PEE
Home Medications
�Medication �Instructions �Recorded
prednisone 10 mg tablet See Rx Instructions .Route 01/14/25
.COMPLEX #30 tabs
pregabalin 100 mg capsule (Lyrica) 100 mg PO TID #30 caps 01/14/25
lithium carbonate 300 mg tablet 600 mg PO BID 01/16/25
Past History
Past History
ED Past Medical History: Psychiatric (Bipolar disorder) and Other (Neurofibromatosis type 1)
ED Past Surgical History: Other (Neurofibroma removal from cervical spine)
Social History
Tobacco: Non-smoker
Alcohol: None
Drug: None
Personal:
Living: with family
Employment: Employed
Family History
Family History: Other (Reviewed and Noncontributory)
[2025-01-16] MEDS: ESKALITH REGULAR RELEASE 600 MG PO ×2 (08:32→20:52)
[2025-01-16 09:10] LABS: Lithium 0.3 mmol/L (0.6-1.2)
[2025-01-16 11:19] LABS: TSH Reflex To Free T4 1.51 uIU/ml (0.47-4.68)
--- NOTE | 2025-01-16 11:43 | W.PN.UPDATE ---
Update Note
Progress Note Update
Nonbillable note
Ataxia -patient balance somewhat better although not completely normal. Final PT evaluation is pending. Dose of Lyrica has been decreased to 50 mg twice daily. Patient was actually prescribed Lyrica 100 mg 3 times a day although was taking 100
twice daily only. [place] levels were checked and were within normal limit. MRI brain with and without contrast imaging is done and result is pending
Toxic encephalopathy -presumed from Lyrica. See above as patient was taking 100 mg twice daily only. Trial of 50 mg twice daily starting from today in the evening. Check UA/COVID as well
Possible d/c tomorrow
[2025-01-16 12:26] LABS: Urine Albumin Negative (Neg - Trace); Urine Bilirubin Negative (Negative); Urine Character Clear (Clear); Urine Color Yellow; Urine Glucose Negative (Negative); Urine Ketone Negative (Negative); Urine Leukocyte 1+ (Negative); Urine Nitrite Negative (Negative); Urine Occult Blood Negative (Negative); Urine Specific Gravity 1.005 (<1.030); Urine Urobilinogen Negative (Neg - 1+)
[2025-01-16 12:37] LABS: Urine Bacteria Few (Negative); Urine Red Blood Cell 0-2 /HPF (0-2); Urine Squamous Cell 0-2 /LPF (Few); Urine White Cell 0-2 /HPF (0-5)
[2025-01-16 12:38] LABS: COVID-19 Antigen Negative (Negative)
--- NOTE | 2025-01-16 15:46 | CM ---
Addendum entered by Amy Parekh 01/16/25 16:08:
Family requested bedside visit to provide clarification on house set up
2STE home
Home has sunken family room with one decent size step down into room (approx 10-12inches) no railings
They noted concern regarding steps in home
Original Note:
CM met with pt, spouse and son bedside
Pt resides with his spouse and two adult sons (20 and 21) in a 2SH with 1 [address], full flight to 2nd floor
Pt is indep with his ADLs, denies use of DMEs
Pt has 5 supportive children total
PCP- Hector Paredes
rx- DEMETRA Porras
Therapy with outpt recs
Script to be provided on dc
Of note, pt is Director Security at [employer]
His spouses works in outpt MRI at [employer] as well
Discharge Disposition- anticipate home with outpt PT/OT
--- NOTE | 2025-01-16 16:03 | EEG.RPT ---
Electroencephalogram Report
Recording
Date of EE01/16/25
Type of EEG: Routine
Length of EEG recordin minutes
Done with Video Recording: Yes
Patient Status: Inpatient
Recording Conditions: Awake, Drowsy and Asleep
Hyperventilation Performed: No
Photic Stimulation Performed: Yes
Report
LESS THAN 1 HOUR EEG INTERPRETATION:
Unremarkable EEG for age
CLINICAL CORRELATION:
A normal EEG does not rule out a diagnosis of epilepsy. If clinical suspicion for seizure persists, a prolonged recording may be warranted.
Clinical correlation is advised.
METHODS:
A 21 channel digitized electroencephalogram (EEG) was performed using the 10/20 international system of electrode placement and one-lead of ECG recorded. The [employer] quantitative EEG system was utilized.
ELECTROENCEPHALOGRAPHER IMPRESSION(S):
Quality of study
Good
Background
There was an unremarkable anterior-posterior voltage gradient of alpha frequency.
With eye opening the background activity changed to a low voltage mixture of frequencies.
There were no significant asymmetries of background activity noted.
Sleep
Drowsiness present
Stage 1 present
Stage 2 present
Hyperventilation
No activation
Photic Stimulation
No activation
ECG
Normal sinus rhythm
[2025-01-16] MEDS: LYRICA 50 MG PO (20:56)
[2025-01-17 06:00] VITALS: BMI 27.1
[2025-01-17 06:38] LABS: Hemoglobin 13.8 g/dL (13.0-18.0); Mean Corp Hgb Conc. 33.7 g/dL (33.0-37.0); Mean Corpuscular Hgb 29.9 pg (27.0-31.0); Mean Corpuscular Volume 88.7 fL (80.0-94.0); Mean Platelet Volume 9.9 fL (7.4-10.4); Platelet Count 237 10^3/uL (130-400); Red Blood Cell Count 4.62 10^6/uL (4.70-6.10); Red Cell Dist. Width 12.7 % (11.5-14.5); White Blood Cell Count 7.7 10^3/uL (4.8-10.8)
[2025-01-17 06:46] LABS: Blood Urea Nitrogen 14 mg/dl (9-20); Calcium 9.1 mg/dl (8.4-10.2); Carbon Dioxide 26 mmol/L (22-30); Chloride 109 mmol/L (98-107); Estimated Creatinine Clearance 84 ml/min; Glucose 94 mg/dl (70-99); Potassium 4.2 mmol/L (3.5-5.1); Sodium 139 mmol/L (135-145); eGFR > 60.00
[2025-01-17 07:03] VITALS: BP 127/72
[2025-01-17] MEDS: LYRICA PO (08:21)
[2025-01-17] MEDS: ESKALITH REGULAR RELEASE 600 MG PO ×2 (08:21→19:56)
--- NOTE | 2025-01-17 09:00 | W.PN.HOSP.TC ---
Addendum entered and electronically signed by Travis Ramos MD 01/17/25 15:01:
Family requesting patient to be transferred to [facility]
Transfer center contacted and patient have been accepted by Dr Apryl Alejandro for evaluation.
Transfer paper signed
Addendum entered and electronically signed by Travis Ramos MD 01/17/25 13:24:
Spouse reported patient not being himself. Having some pressured speech and mild change in behavior
[place] level has been subtherapeutic and will have psychiatry evaluate for possible need of adjustment of dose
Repeat lithium level has been ordered.
Addendum entered and electronically signed by Travis Ramos MD 01/17/25 11:26:
Patient actually did not do well today with physical therapy and was felt to be worse.
PT felt patient would benefit with acute rehab.
As we have lowered the dose of Lyrica in the morning will require further monitoring for symptoms
Patient has been changed to inpatient level
Physiatry consultation has been placed as well.
Original Note:
Today's Communication/Plan
-
see note
Assessment / Plan
Assessment / Plan
Acute Ataxia
Diploplia
NF type I s/p resection in in [place]
- patient did well with PT yesterday and recommended OP PT therapy
- Discussed with patient that not safe to drive while symptoms recovering
- MRI brain w/wo contrast did not show any problem
- [place] levels were checked and were within normal limit.
- Patient was actually prescribed Lyrica 100 mg 3 times a day although was taking 100 twice daily only. Dose of Lyrica has been decreased to 50 mg twice daily, which patient was not able to tolerate either with some reported diploplia in the night-
discussed with neuro regarding completely discontinuing vs switching to different med - neuro recommended trial of lyrica 25mg - will provide one dose and monitor
- Neuro has sent referral to [facility] NF clinic to have patient seen outpatient basis.
- Possible d/c later today if able to tolerate Lyrica without any issues.
Toxic encephalopathy- resolved
- presumed from Lyrica.
- covid/UA neg
Cervical radiculopathy
- had visited ER last week with MR C spine did not show any changes
- already better with prednisone taper course, b/l UE neuro symptoms has been resolved at this point
Bipolar disorder
- mood stable with home dose lithium
- lithium level at point subthearputic
DVT PPX - scd
Full code
Care plan discussed with neurology
Anticipated Discharge: Within 24 hours
Subjective/Interval History
-
Date of Service: January 17, 2025
reported episode of double vision/dizziness last night
no other new issues
Objective Data
-
Labs:
Laboratory Results
01/17/25
05:59
WBC 7.7
Hgb 13.8
Hct 41.0
Plt Count 237
Sodium 139
Potassium 4.2
Chloride 109 H
Carbon Dioxide 26
BUN 14
Creatinine 0.8
Glucose 94
Calcium 9.1
Vital Signs:
Vital Signs
Temp Pulse Resp BP Pulse Ox
97.6 F 69 16 127/72 97
01/17/25 07:03 01/17/25 07:03 01/17/25 07:03 01/17/25 07:03 01/17/25 07:03
I&O
01/16/25 01/17/25 01/18/25
06:59 06:59 06:59
Intake Total 780 / 780
Output Total 150 / 150
Balance 630 / 630
Review of Systems
-
Respiratory: Reports No Symptoms
Cardiac: Reports No Symptoms
Abdomen/GI: Reports No Symptoms
Physical Exam
-
General: No Apparent Distress
HEENT: Negative Oxygen
Neuro: Awake, Alert and Oriented
[2025-01-17 09:20] VITALS: BP 114/72; BP 117/80; BP 119/80; BP 120/83; PULSE 80; PULSE 84; PULSE 94
[2025-01-17] MEDS: LYRICA 25 MG PO (09:56)
[2025-01-17 10:06] VITALS: BP 107/74; BP 113/72; BP 117/76; PULSE 104; PULSE 85; PULSE 91
--- NOTE | 2025-01-17 14:18 | CM ---
Addendum entered by Amy Parekh 01/17/25 15:04:
Pt accepted for transfer to [place]
Original Note:
Bedside meeting with pt and multiple family members to discuss dc planning
Pt now with acute recs per therapy
In agreement with a PMR consult
However, pt is now requesting a transfer to [place]
TT/Dr Ramos and Dr Dean with pt request
Role of insurance in prior auth process for acute rehab discussed
PMR consult placed and pending
Discharge Disposition- acute rehab
--- NOTE | 2025-01-17 15:41 | W.DCSUMMARY ---
Discharge Summary
Discharge Data
Date of Admission: 01/16/25
Date of Discharge: 01/17/25
-
Pending Results: No
Hospital Course
Discharging Physician : Dr Travis Ramos
Disposition : [facility]
Primary care physician : Dr Hector Paredes
Principal Discharged diagnosis :
Acute ataxia/diplopia
Mild toxic encephalopathy
Chronic Discharge diagnosis :
Bipolar disorder on lithium
Hospital Course :
Patient is a 59-year-old male with admission past medical history came to ER for having new onset of problem with balance and double vision. Earlier in the week patient had started with new upper extremity numbness tingling and neck pain for which
patient had an MRI of C-spine. 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 Patient was discharged on regimen of steroid and Lyrica. Patient was prescribed Lyrica 100 mg 3 times a
day although was taking only twice daily at home. Unfortunately patient started to having new problem with balance and double vision. Patient came back to ER for further evaluation. Neurology evaluated patient and a follow-up MRI brain with and
without contrast ruled out any stroke/acute abnormality. [place] levels were subtherapeutic. Patient was felt to having side effect of Lyrica and dose was decreased although did not have improvement in symptoms. Case was discussed with [place]
[facility] neurologist to have accepted patient for transfer for further evaluation.
Of note patient family have noticed that patient have some pressured speech and at times not behaving like himself. [place] level has been subtherapeutic and psychiatry was consulted for further evaluation.
Important imaging findings :
None
Procedure findings :
None
Discharge Plan
-
Patient Disposition: Acute Care Hospital
Condition: Fair
Discharge Orders:
Discharge Patient (As Directed); Ordered 01/17/25
Ordered By: Travis Ramos
Discharge Date and Time
Print Language: OMANI
[2025-01-17 15:50] VITALS: BP 119/78
[2025-01-17 15:59] LABS: Lithium 0.7 mmol/L (0.6-1.2)
[2025-01-17] MEDS: FLUSH (NSS) 1 FLUSH IV (19:57)
[2025-01-17 22:22] VITALS: BP 104/72; BP 108/71; BP 108/72; PULSE 81; PULSE 83; PULSE 95
[2025-01-17 22:23] VITALS: BP 108/72
[2025-01-18 06:00] VITALS: BMI 27.0
[2025-01-18 07:00] VITALS: BP 104/75; BP 124/74; BP 130/72; PULSE 76; PULSE 84; PULSE 96
--- NOTE | 2025-01-18 08:05 | W.PN.HOSP.TC ---
Today's Communication/Plan
-
Transfer to hospital of [facility] today, bed is available.
Assessment / Plan
Assessment / Plan
Acute Ataxia
Diploplia
NF type I s/p resection in in [place]
- patient did well with PT yesterday and recommended OP PT therapy
- Discussed with patient that not safe to drive while symptoms recovering
- MRI brain w/wo contrast did not show any problem
- [place] levels were checked and were within normal limit
- Patient was actually prescribed Lyrica 100 mg 3 times a day although was taking 100 twice daily only. Dose of Lyrica has been decreased to 50 mg twice daily, which patient was not able to tolerate either with some reported diploplia in the night-
discussed with neuro regarding completely discontinuing vs switching to different med - neuro recommended trial of lyrica 25mg
- Neuro has sent referral to [facility] to have patient seen outpatient basis
- Medically stable for transfer to [facility] today, patient has been accepted by their neurologist
Toxic encephalopathy- resolved
- presumed from Lyrica, Lyrica subsequently decreased to 25 mg daily
- covid/UA neg
Cervical radiculopathy
- had visited ER last week with MR C spine did not show any changes
- already better with prednisone taper course, b/l UE neuro symptoms has been resolved at this point
Bipolar disorder
- mood stable with home dose lithium
- lithium level at point subthearputic
DVT PPX - scd
Full code
Physical Exam
General: No acute distress
HEENT: Normocephalic, Atraumatic, EOMI, MMM
Respiratory: Clear to Auscultation bilaterally
Cardiac: Normal S1/S2, Regular Rate and Rhythm
GI: Soft, Nontender, Nondistended, Normal Bowel Sounds
Extremities: No Clubbing, Cyanosis, or Edema
Neuro: Nonfocal/Grossly Intact
Ataxic gait
Psych: Calm, Cooperative
Anticipated Discharge: Today
Subjective/Interval History
-
Date of Service: January 18, 2025
Patient reports no more recurrence of diplopia. His ataxia is the same. Denies chest pain, shortness of breath. No fever, no vomiting.
Objective Data
-
Vital Signs:
Vital Signs
Temp Pulse Resp BP Pulse Ox
97.4 F 81 18 108/72 100
01/17/25 22:23 01/17/25 22:23 01/17/25 22:23 01/17/25 22:23 01/17/25 22:23
I&O
01/17/25 01/18/25 01/19/25
06:59 06:59 06:59
Intake Total 780 / 780 960 / 960
Output Total 150 / 150
Balance 630 / 630 960 / 960
[2025-01-18] MEDS: ESKALITH REGULAR RELEASE 600 MG PO (08:15)
--- NOTE | 2025-01-18 12:29 | CM ---
CM following re: discharge planning.
Reviewed pt's chart, met with pt and pt's daughter Sole at bedside.
Discharge order noted for transfer to [facility]. Both pt and his daughter are aware of transfer time 15:30.
D/C plan: transfer to [facility].
--- NOTE | 2025-01-18 13:40 | W.DCSUMMARY ---
Discharge Summary
Discharge Data
Date of Admission: 01/16/25
Date of Discharge: 01/18/25
-
Pending Results: No
Hospital Course
Discharging Physician : Dr Travis Ramos
Disposition : [facility]
Primary care physician : Dr Hector Paredes
Principal Discharged diagnosis :
Acute ataxia/diplopia
Mild toxic encephalopathy
Chronic Discharge diagnosis :
Bipolar disorder on lithium
Hospital Course :
Patient is a 59-year-old male with admission past medical history came to ER for having new onset of problem with balance and double vision. Earlier in the week patient had started with new upper extremity numbness tingling and neck pain for which
patient had an MRI of C-spine. 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 Patient was discharged on regimen of steroid and Lyrica. Patient was prescribed Lyrica 100 mg 3 times a
day although was taking only twice daily at home. Unfortunately patient started to having new problem with balance and double vision. Patient came back to ER for further evaluation. Neurology evaluated patient and a follow-up MRI brain with and
without contrast ruled out any stroke/acute abnormality. [place] levels were subtherapeutic. Patient was felt to having side effect of Lyrica and dose was decreased although did not have improvement in symptoms. Case was discussed with [place]
[facility] neurologist to have accepted patient for transfer for further evaluation.
Of note patient family have noticed that patient have some pressured speech and at times not behaving like himself. [place] level has been subtherapeutic and psychiatry was consulted for further evaluation.
Important imaging findings :
None
Procedure findings :
None
Discharge Plan
-
Patient Disposition: Acute Care Hospital
Condition: Fair
Discharge Orders:
Discharge Patient (As Directed); Ordered 01/17/25
Ordered By: Travis Ramos
Discharge Date and Time
Print Language: MACEDONIAN
[2025-01-18 15:00] VITALS: BP 124/68
== END 2025-01-18 15:45 | disposition short-term general hospital (02) | DRG 91 ==
LOC: 2 NORTH 06:43
PROVIDERS: Hospitalist; ADMITTING PHYSICIAN Hospitalist; ATTENDING PHYSICIAN Family Medicine; CONSULT PHYSICIAN Psychiatry & Neurology Neurology; EMERGENCY PHYSICIAN Emergency Medicine; FAMILY PHYSICIAN Family Medicine
DX: R27.0 Ataxia, unspecified (principal); G92.9 Unspecified toxic encephalopathy; H53.2 Diplopia; R27.8 Other lack of coordination; F31.9 Bipolar disorder, unspecified; M54.12 Radiculopathy, cervical region; Z11.52 Encounter for screening for COVID-19
CPT/HCPCS: 70450; 70553; 80048; 80053; 80178; 81003; 81015; 82077; 84443; 85025; 85027; 87811; 95813; 97112; 97116; 97129; 97162; 97166; 97530; 97535; 99284; A9575

== ENCOUNTER → 2025-01-21 08:03 | Outpatient (REF) | payer BC, SELFPAY ==
[2025-01-21 09:59] LABS: Hematocrit 45.3 % (39.0-52.0); Hemoglobin 14.9 g/dL (13.0-18.0); Mean Corp Hgb Conc. 32.9 g/dL (33.0-37.0); Mean Corpuscular Volume 88.6 fL (80.0-94.0); Nucleated Red Blood Cells % 0 % (-); Platelet Count 250 10^3/uL (130-400); Red Cell Dist. Width 12.3 % (11.5-14.5)
[2025-01-21 10:29] LABS: Urine Character Clear (Clear)
[2025-01-21 10:59] LABS: ALT (SGPT) 24 U/L (0-50); AST (SGOT) 22 U/L (17-59); Albumin 4.0 g/dl (3.5-5.0); Alkaline Phosphatase 50 U/L (38-126); Blood Urea Nitrogen 15 mg/dl (9-20); Calcium 9.5 mg/dl (8.4-10.2); Carbon Dioxide 26 mmol/L (22-30); Chloride 108 mmol/L (98-107); Glucose 89 mg/dl (70-99); HDL Cholesterol 59 mg/dl; LDL Cholesterol, Calculated 100 mg/dl; Lithium 0.7 mmol/L (0.6-1.2); Potassium 4.7 mmol/L (3.5-5.1); Sodium 138 mmol/L (135-145); Total Protein 6.8 g/dl (6.3-8.2); Very Low Density Lipoprotein 16 mg/dl (0-30); eGFR > 60.00
[2025-01-21 11:12] LABS: Urine Squamous Cell 0-2 /LPF (Few)
[2025-01-21 11:15] LABS: Urine Red Blood Cell 0-2 /HPF (0-2); Urine Urothelial Cell 0-2 /LPF (FEW); Urine White Cell 0-2 /HPF (0-5)
[2025-01-21 11:35] LABS: PSA, Total - Screen 3.74 ng/ml (0.0-4.0)
[2025-01-21 11:54] LABS: Vitamin B12 184 pg/ml (239-931)
== END ==
LOC: HWLAB 08:03
PROVIDERS: ATTENDING PHYSICIAN Family Medicine
DX: R42 Dizziness and giddiness (principal); Q85.00 Neurofibromatosis, unspecified; F31.9 Bipolar disorder, unspecified; R97.20 Elevated prostate specific antigen [PSA]; Z13.220 Encounter for screening for lipoid disorders
CPT/HCPCS: 36415; 80053; 80061; 80178; 81003; 81015; 82607; 84443; 85025; 86618; G0103

== ENCOUNTER → 2025-01-21 11:05 | Outpatient (REF) | payer BC, SELFPAY | LOC: MRI 11:05 | PROVIDERS: FAMILY PHYSICIAN Family Medicine | DX: G57.02 Lesion of sciatic nerve, left lower limb (principal) | CPT/HCPCS: 72158; 73720; A9575 ==

== ENCOUNTER → 2025-07-21 08:02 | Outpatient (REF) | payer BC, SELFPAY ==
[2025-07-21 10:48] LABS: PSA, Total - Screen 3.62 ng/ml (0.0-4.0)
[2025-07-21 11:06] LABS: Vitamin B12 192 pg/ml (239-931)
== END ==
LOC: REG 08:02
PROVIDERS: ATTENDING PHYSICIAN Family Medicine
DX: R97.20 Elevated prostate specific antigen [PSA] (principal); Z00.01 Encounter for general adult medical examination with abnormal findings; E53.8 Deficiency of other specified B group vitamins
CPT/HCPCS: 36415; 82607; G0103